=== PATIENT | female | born 1975 | race Caucasian/White ===

== ENCOUNTER 2016-11-16 14:11 | Emergency (ER) | payer BC ==
[~2016-11-16] VITALS: Ht 170.2 cm; Wt 85.3 kg
[~2016-11-16 14:11] MED LIST: BISA10SU54 PR; DIAZ5TAB PO; IBUP800T PO; LORA-445 PO; MAGN400O4 PO; OXYC-223 PO; OXYC1TAB7 PO; OXYC1TAB9 PO; SENN-31 PO; ZOLP-413 PO
[2016-11-16] MEDS ORDERED: KETOROLAC 30 MG/1 ML ONE (15:12)
[2016-11-16] MEDS ORDERED: DIAZEPAM 5 MG TABLET ONE (15:12)
[2016-11-16] MEDS ORDERED: KETOROLAC 30 MG/1 ML IM ONE (15:30)
[2016-11-16] MEDS ORDERED: DIAZEPAM 5 MG TABLET PO ONE (15:30)
[2016-11-16 15:57] VITALS: BP 127/89
== END 2016-11-16 15:59 | disposition home or self-care (01) ==
LOC: ED 15:30
DX: R25.2 Cramp and spasm (principal)
CPT/HCPCS: 96372; 99283; J1885

== ENCOUNTER 2019-02-17 09:10 | Emergency (ER) | payer BC, OTHER ==
[~2019-02-17] VITALS: Ht 170.2 cm; Wt 79.2 kg
[~2019-02-17 09:10] MED LIST changes: +IBUP-1223 PO; -IBUP800T PO; -MAGN400O4 PO; +MAGN400O7 PO; -OXYC-223 PO; +OXYC-306 PO; +OXYC-432 PO; -OXYC1TAB9 PO
[2019-02-17] MEDS ORDERED: FAMOTIDINE 20 MG TABLET ONE (09:39)
[2019-02-17] MEDS ORDERED: MAALOX/HYOSCYAMINE/LIDOCAINE 45 ML BTL ONE (09:39)
[2019-02-17] MEDS ORDERED: ONDANSETRON ODT 4 MG ONE (09:39)
--- NOTE | 2019-02-17 09:45 | NUR ---
PT INFORMED OF NEED FOR URINE SAMPLE, UNABLE TO PROVIDE AT THIS TIME. PT GIVEN WATER PER REQUEST. DENIES ANY FURTHER NEEDS OR CONCERNS AT THIS TIME.
[2019-02-17] MEDS ORDERED: ONDANSETRON ODT 4 MG PO ONE (10:00)
[2019-02-17] MEDS ORDERED: FAMOTIDINE 20 MG TABLET PO ONE (10:00)
[2019-02-17] MEDS ORDERED: MAALOX/HYOSCYAMINE/LIDOCAINE 45 ML BTL PO ONE (10:00)
[2019-02-17 10:08] LABS: BASOPHILS # (AUTO) 0.03 x10^3/uL (0-0.1); BASOPHILS % (AUTO) 0 % (0-1); EOSINOPHILS # (AUTO) 0.07 x10^3/uL (0-0.4); EOSINOPHILS % (AUTO) 1 % (1-7); LYMPHOCYTES # (AUTO) 1.73 x10^3/uL (1-3.4); LYMPHOCYTES % (AUTO) 27 % (22-44); MD NO; MEAN CORPUSCULAR HEMOGLOBIN 32.3 pg (27.0-34.8); MEAN CORPUSCULAR HGB CONC 33.2 g/dL (32.4-35.8); MEAN CORPUSCULAR VOLUME 97.2 fL (80-100); MEAN PLATELET VOLUME 7.5 fL (7.4-10.4); MONOCYTES # (AUTO) 0.38 x10^3/uL (0.2-0.8); MONOCYTES % (AUTO) 6 % (2-9); NEUTROPHILS # (AUTO) 4.25 x10^3/uL (1.8-6.8); NEUTROPHILS % (AUTO) 66 % (42-75); PLATELET COUNT 339 x10^3/uL (130-400); RED BLOOD COUNT 4.61 x10^6/uL (3.82-5.3); RED CELL DISTRIBUTION WIDTH 14.3 % (9.6-15.2)
[2019-02-17 10:21] LABS: ALANINE AMINOTRANSFERASE 24 U/L (12-78); ALBUMIN 3.6 g/dL (3.4-5.0); ANION GAP 7 mmol/L (5-15); CALCIUM 8.7 mg/dL (8.5-10.1); CHLORIDE 111 mmol/L (98-107); CREATININE 0.81 mg/dL (0.55-1.02)
[2019-02-17 10:25] LABS: ALKALINE PHOSPHATASE 49 U/L (45-117); BILIRUBIN,TOTAL 0.5 mg/dL (0.2-1.0); TOTAL PROTEIN 7.3 g/dL (6.4-8.2); TROPONIN I < 0.015 ng/mL (0.000-0.045)
[2019-02-17 10:56] LABS: CULTURE INDICATED? NO; MICROSCOPIC NOT IND
[2019-02-17 11:01] VITALS: BP 115/79
--- NOTE | 2019-02-17 11:17 | NUR ---
Pt resting in bed, denies any needs or concerns at this time. Results in, pt up for recheck.
== END 2019-02-17 11:36 | disposition home or self-care (01) ==
LOC: ED 11:29
DX: K29.00 Acute gastritis without bleeding (principal); Z87.891 Personal history of nicotine dependence
CPT/HCPCS: 36415; 74022; 80053; 81003; 83690; 84484; 84703; 85025; 93005; 99284; Q0162

== ENCOUNTER 2021-02-28 06:52 | Emergency (ER) | payer MEDICAID ==
[~2021-02-28] VITALS: Ht 170.2 cm; Wt 84.1 kg
[~2021-02-28 06:52] MED LIST changes: -OXYC-306 PO; -OXYC-432 PO; +OXYC1TAB17 PO; +OXYC1TAB18 PO
[2021-02-28 07:00] VITALS: BP 136/83
[2021-02-28 07:47] LABS: BASOPHILS % (AUTO) 1 % (0-1); EOSINOPHILS % (AUTO) 2 % (1-7); LYMPHOCYTES % (AUTO) 31 % (22-44); MEAN CORPUSCULAR HEMOGLOBIN 32.6 pg (27.0-34.8); MEAN CORPUSCULAR HGB CONC 34.1 g/dL (32.4-35.8); MEAN PLATELET VOLUME 7.3 fL (7.4-10.4); MONOCYTES % (AUTO) 10 % (2-9); NEUTROPHILS % (AUTO) 57 % (42-75); PLATELET COUNT 332 x10^3/uL (130-400); RED BLOOD COUNT 4.44 x10^6/uL (3.82-5.3); RED CELL DISTRIBUTION WIDTH 13.7 % (9.6-15.2)
[2021-02-28 07:58] LABS: ALBUMIN 3.4 g/dL (3.4-5.0); ANION GAP 3 mmol/L (5-15); CALCIUM 8.7 mg/dL (8.5-10.1); CHLORIDE 110 mmol/L (98-107); CREATININE 0.75 mg/dL (0.55-1.02)
[2021-02-28 08:05] LABS: MICROSCOPIC INDICATED
== END 2021-02-28 09:52 | disposition home or self-care (01) ==
LOC: ED 07:19
DX: B34.9 Viral infection, unspecified (principal); M79.601 Pain in right arm; Z90.710 Acquired absence of both cervix and uterus; Z87.891 Personal history of nicotine dependence
CPT/HCPCS: 36415; 80048; 81001; 82040; 84703; 85025; 87086; 99283